=== PATIENT | female | born 1935 ===

== ENCOUNTER 2018-06-13 08:58 | Day surgery (SDC) | payer OTHER ==
[2018-06-13] VITALS (10 sets, daily range): BP systolic 125–157; BP diastolic 56–76
[~2018-06-13] VITALS: Ht 149.9 cm; Wt 63.5 kg
[~2018-06-13 08:58] MED LIST: ceFAZolin sod 1 GM in NS 55 ML IVPB ONE
[2018-06-13] MEDS ORDERED: Bupivacaine w/Epi 0.5% 30ml Vial INJ ONE (09:38)
[2018-06-13] MEDS ORDERED: EPINEPHrine 1mg/1ml Amp ONE (09:38)
[2018-06-13] MEDS ORDERED: ALLOPURINOL300 M1 ORAL (10:17)
[2018-06-13] MEDS ORDERED: LYRICA25 MG ORAL (10:17)
[2018-06-13] MEDS ORDERED: CLOPIDOGREL75 MG ORAL (10:17)
[2018-06-13] MEDS ORDERED: FAMOTIDINE20 MG ORAL (10:17)
[2018-06-13] MEDS ORDERED: ISOSORBIDE DINI20 M2 PO (10:17)
[2018-06-13] MEDS ORDERED: TRINTELLIX PO (10:17)
[2018-06-13] MEDS ORDERED: VITAMIN D1000 UNI1 ORAL (10:17)
[2018-06-13] MEDS ORDERED: MYRBETRIQ25 MG PO (10:17)
[2018-06-13] MEDS ORDERED: RANEXA500 MG ORAL (10:17)
[2018-06-13] MEDS ORDERED: CARVEDILOL6.25 MG ORAL (10:17)
[2018-06-13] MEDS ORDERED: AMLODIPINE BESYL5 MG ORAL (10:17)
[2018-06-13] MEDS ORDERED: PANTOPRAZOLE SO40 MG ORAL (10:17)
[2018-06-13] MEDS ORDERED: SYNTHROID150 MCG ORAL (10:17)
[2018-06-13] MEDS ORDERED: GEMFIBROZIL600 MG ORAL (10:17)
[2018-06-13] MEDS ORDERED: LOSARTAN POTASS50 MG ORAL (10:17)
[2018-06-13] MEDS ORDERED: NOVOLOG MI100 UNIT/3 SQ (10:17)
[2018-06-13] MEDS ORDERED: FIBER625 MG PO (10:17)
[2018-06-13] MEDS ORDERED: TRESIBA FL100 UNIT/1 SQ (10:17)
[2018-06-13] MEDS ORDERED: LEVOTHYROXINE125 MCG ORAL (10:17)
[2018-06-13] MEDS ORDERED: FEXOFENADINE HC60 M1 PO (10:17)
--- NOTE | 2018-06-13 10:18 | Pre-Procedure Note/Attestation ---
Pre-Procedure Note/Attestation Complete Prior to Procedure Planned Procedure: right Procedure Narrative: R shoulder scope, RC debridement, possible rotator cuff repair, subarcromial decompression Indications for Procedure Pre-Operative Diagnosis: R shoulder RC tear, impingement sydrome Attestation I attest that I discussed the nature of the procedure; its benefits; risks and complications; and alternatives (and the risks and benefits of such alternatives ), prior to the procedure, with the patient (or the patient's legal hvac sales representative). I attest that, if there was a reasonable possibility of needing a blood transfusion, the patient (or the patient's legal hvac sales representative) was given the [place] [facility] standardized written summary, pursuant to the Pranav And[employer] Blood Safety Act ([place] Health and Safety Code # 1645, as amended). I attest that I re-evaluated the patient just prior to the surgery and that there has been no change in the patient's H&P, except as documented below: Tom Hawkins MD Jun 13, 2018 10:18
[2018-06-13] MEDS ORDERED: Propofol 200mg/20ml IV ONE (10:29)
[2018-06-13] MEDS ORDERED: Lidocaine 1% MPF 10mg/ml 5ml ONE (10:29)
[2018-06-13] MEDS ORDERED: fentaNYL 100 mcg/2 mL IV ONE (10:31)
[2018-06-13] MEDS ORDERED: Ropivacaine 5mg/ml Vial 30ml INJ ONE (10:34)
[2018-06-13] MEDS ORDERED: NS Irrig 4000ml IRRIG ONE (11:00)
[2018-06-13] MEDS ORDERED: LR 1000ml ONE (11:00)
[2018-06-13] MEDS ORDERED: LR 1000ml 1,000 ML IVLG SCH (12:29)
--- NOTE | 2018-06-13 12:29 | Anethesia Preoperative Eval ---
Anesthesia Pre-op PMH/ROS General Date of Evaluation: Jun 13, 2018 Time of Evaluation: 10:34 Anesthesiologist: Ankit ASA Score: ASA 3 Mallampati Score Class I : Soft palate, uvula, fauces, pillars visible Class II: Soft palate, uvula, fauces visible Class III: Soft palate, base of uvula visible Class IV: Only hard plate visible Mallampati Classification: Class II Surgeon: Ross Diagnosis: R shoulder pain Surgical Procedure: R shoulder scope Anesthesia History: none Social History: smoking - h/o Family History: no anesthesia problems Allergies: Coded Allergies: ASPIRIN (Verified Allergy, Severe, 06/12/18) RASH,HIVES CODEINE (Verified Allergy, Severe, 06/12/18) CONSTIPATION Uncoded Allergies: SULFA (Allergy, Unknown, 06/12/18) CAN NOT REMEMBER REACTION Medications: see eMAR Patient NPO?: Yes Past Medical History Cardiovascular: Reports: HTN, CAD - s/p CABG no c/p; Denies: OR, valve dz, arrhythmia, other Pulmonary: Denies: asthma, COPD, PHUC, other Gastrointestinal/Genitourinary: Reports: GERD, CRI; Denies: ESRD, other Neurologic/Psychiatric: Reports: depression/anxiety, other - chroic pain; Denies: dementia, CVA, TIA Endocrine: Reports: DM, hypothyroidism; Denies: steroids, other HEENT: Reports: cataract (L), cataract (R); Denies: glaucoma, [place] (L[place] (R), other Hematology/Immune: Reports: anemia - mild Musculoskeletal/Integumentary: Reports: DJD; Denies: OA, RA, DDD, edema, other PMH Narrative: as above PSxH Narrative: CABG cholecystectomy, hysterectomy, partial mastectomy R Anesthesia Pre-op Phys. Exam Physician Exam Last Vital Signs Date Time Temp Pulse Resp B/P (MAP) Pulse Ox O2 Delivery O2 Flow Rate FiO2 06/13/18 09:38 97.6 65 20 128/76 99 Room Air Constitutional: NAD Neurologic: CN 2-12 intact Cardiovascular: RRR, no M/R/G Respiratory: CTA Gastrointestinal: S/NT/ND Airway Exam Mallampati Score: Class II MO: limited Neck: stiff ROM: limited Teeth: missing Dentures: upper, lower Anesthesia Pre-op A/P Labs see chart Accucheck 125 at admision Studies Pre-op Studies: EKG - SR Risk Assessment & Plan Assessment: ASA 3 Plan: GA with LMA brachial plexus block for p/op pain control Status Change Before Surgery: No Pre-Antibiotics Drug: Ancef 1gr. Given Within 1 Hr of Incision: Yes Time Given: 11:20 Marcus Pham MD Jun 13, 2018 12:29
[2018-06-13] MEDS ORDERED: Hydromorphone 0.5mg/0.5ml inj IVP PRN (12:30)
[2018-06-13] MEDS ORDERED: DiphenhydrAMINE 50mg/ml Inj IVP PRN (12:30)
--- NOTE | 2018-06-13 12:32 | Brief Operative Note ---
Immediate Post Operative Note Operative Note Pre-op Diagnosis: R shoulder RC tear, impingement sydrome Procedure: R shoulder scope, RCR, SAD, debridement, synovectomy Post-op Diagnosis: same as pre-op Findings: consistent w/pre-op dx studies Surgeon: Ross Senior Materials Planner: Alberto Anesthesiologist: Ankit Anesthesia: general, regional - Interscalene block Specimen: yes - shavings Complications: none Condition: stable Fluids: 400cc Estimated Blood Loss: none Drains: none Implant(s) used?: Yes - biomet anchor Tom Hawkins MD Jun 13, 2018 12:32
[2018-06-13] MEDS ORDERED: Sodium Chloride 10ml vial INJ ONE (12:35)
--- NOTE | 2018-06-13 12:52 | Immediate Post-Op Evaluation ---
Immediate Post-Op Evalulation Immediate Post-Op Evalulation Procedure: R shoulder arthroscopy subacromion decompression RC repair Date of Evaluation: Jun 13, 2018 Time of Evaluation: 12:51 IV Fluids: 400 Blood Products: none Estimated Blood Loss: min Urinary Output: none Blood Pressure Systolic: 125 Blood Pressure Diastolic: 68 Pulse Rate: 64 Respiratory Rate: 20 O2 Sat by Pulse Oximetry: 99 Temperature (Fahrenheit): 97.6 Pain Score (1-10): 1 Nausea: No Vomiting: No Complications none Patient Status: reacts, patent, none Hydration Status: adequate Marcus Pham MD Jun 13, 2018 12:52
--- NOTE | 2018-06-13 13:36 | 48 Hour Post Anesthesia Eval ---
Post Anesthesia Evaluation Procedure: R shoulder arthroscopy subacromion decompression RC repair Date of Evaluation: Jun 13, 2018 Time of Evaluation: 13:34 Blood Pressure Systolic: 165 0: 74 Pulse Rate: 68 Respiratory Rate: 20 Temperature (Fahrenheit): 97.6 O2 Sat by Pulse Oximetry: 98 Airway: patent Nausea: No Vomiting: No Pain Intensity: 2 Hydration Status: adequate Cardiopulmonary Status: stable Mental Status/LOC: patient returned to baseline Follow-up Care/Observations: n/a Post-Anesthesia Complications: none Follow-up care needed: ready to discharge Marcus Pham MD Jun 13, 2018 13:36
--- NOTE | 2018-06-14 00:15 | Operative Note - Dictated ---
DATE OF OPERATION: 06/13/2018 PREOPERATIVE DIAGNOSIS: Right shoulder supraspinatus partial tear with rotator cuff tendinopathy. POSTOPERATIVE DIAGNOSES: Right shoulder supraspinatus partial tear with rotator cuff tendinopathy, chondral lesions, humeral head, and glenoid labral tear and intra-articular synovitis. PROCEDURES PERFORMED: 1. Right shoulder rotator cuff repair. 2. Right shoulder arthroscopic subacromial decompression with release of coracoacromial ligament, subtotal bursectomy and acromioplasty. 3. Arthroscopic debridement of labrum with partial synovectomy, glenohumeral joint. 4. Chondroplasty of the glenoid. SURGEON: Tom Hawkins M.D. UNISAW OPERATOR: None. ANESTHESIOLOGIST: Marcus Pham M.D. ANESTHESIA: General endotracheal anesthesia with interscalene block. COMPLICATIONS: None. INTRAVENOUS ANTIBIOTICS: 1 g of Ancef. INDICATIONS: This is a pleasant female who has failed nonoperative treatment and option for above treatment was given. Risks, alternatives, and benefits were discussed with the patient. Risks include, but are not limited to, anesthesia complications including , medical complications including liver, kidney, cardiopulmonary deficits, bleeding, infection, cardiopulmonary issues, infection, bleeding, neurovascular injury, loss of range of motion, stiffness, need for revision surgery, and . The patient understood and wished to proceed. GROSS FINDINGS: With the patient under anesthesia, the patient had full range of motion of the shoulder with good stability via arthroscopy. The biceps tendon was thickened and there was a tear of the anterior, superior, and posterior labrum. The glenoid cartilage revealed grade 3 to grade 4 chondral lesions. The rotator cuff, articular surface revealed a partial-thickness tear of the supraspinatus tendon. The humeral head articular surface revealed grade 1 to grade 2 chondral lesions. The subscapularis tendon revealed a partial tear. On the bursal surface, the coracoacromial ligament was hypertrophied rough and irregular. There was a nodular subacromial spur on the undersurface of the acromion extending to the AC joint. The bursal surface of the rotator cuff revealed a partial-thickness tear of the supraspinatus tendon. Total thickness of the tear was approximately 80%. PROCEDURE IN DETAIL: The patient was brought into the operating room supine on a stretcher. Appropriate IV lines were placed by the anesthesiologist and 1 g of Ancef was administered. Interscalene block was administered. The patient was induced and intubated without complication. Ligamentous exam under anesthesia was done and showed no instability. The patient was placed into the lateral decubitus position with the right side up. Arm was placed in 30 degrees of forward flexion and 45 degrees of abduction. Axillary roll was placed and all bony prominences were well padded. Sleeve was placed over the right arm with 13 pounds of traction. The arm was prepped and draped in the usual sterile fashion with alcohol, ChloraPrep, and [place] draping. Arthroscopy. The joint was entered posteriorly with a blunt-tip obturator and an operating cannula was placed after making a small skin incision. The anterolateral portal was made with the aid of a switching stick. A 50-point examination of the glenohumeral joint was done. Debridement of labrum. A full-radius shaver was inserted and gentle debridement of the superior, anterior, and posterior labrum was completed until all frayed tissues were removed and the bed of healthy tissue remained. Chondroplasty of glenoid. A gentle chondroplasty of loose articular cartilage of the glenoid was done until there was a stable and balanced rim of articular cartilage of the glenoid. Rotator cuff debridement. A full-radius shaver was used to debride the articular surface of the rotator cuff until all frayed tissues were removed and a bed of healthy tissue remained. Arthroscopy. The arm was changed to the postoperative position with 5 pounds of traction. The bursa was entered in the usual fashion with the anterior and posterior portal established. A full examination of the subacromial space was done with the above findings. The lateral portal was established. Decompression. The heat probe and shaver were used through the lateral portal to skeletonize the undersurface of the acromions, removed the soft tissues and fully released the coracoacromial ligament. A high-speed bur was used through the lateral portal to remove bone from the anterior edge of the acromion and tapering gradually the posterior edge of the AC joint. All loose debris and loose bodies were taken out of the subacromial space. Rotator cuff repair. At this point, the supraspinatus tendon was probed and there was only a few fibers remaining connecting the supraspinatus to the humeral head footprint. The rotator cuff tear was and decortication of the humeral head was done. The torn edges of the rotator cuff were debrided until healthy tissue remained. Mobilization of the rotator cuff was done and from the [employer] system. FiberWire suture was used to repair the rotator cuff tendon. Mobilization was done and there was great mobilization and good purchase of the FiberWire into the rotator cuff tendon. Once this was done, the [place] system, 4.5 mm PEEK anchor was prepared. An awl was used at the level of the humeral head footprint for preparation of placement of the implant. This was done through an accessory anterolateral portal. At this point, the sutures were shuttled to the anterolateral portal and the 4.5 mm PEEK anchor from the [email or web address] system was placed into the hole where the awl had been in. The anchor was placed to the first line and further mobilization of the rotator cuff tendon and reapproximation anatomically to the footprint was done. The anchor was subsequently passed and deeper to the second . The anchor had excellent purchase in the bone, and there was an excellent rotator cuff repair without excess tension and recreation of anatomical repair. Loose debris was removed, and all instruments were removed from the shoulder, the portals were closed with 3-0 nylon sutures in a horizontal mattress fashion. Sterile dressing tape was placed on the plate with the arm was placed into an abduction sling. Postoperative instructions were given to the patient, and the patient went to the recovery room in stable condition. Neurovascularly intact. Tom Hawkins M.D. DR: Derrick JOB#: [id number] CC:
== END 2018-06-13 14:40 | disposition home or self-care (01) ==
LOC: SUR 08:58
DX: M75.101 Unspecified rotator cuff tear or rupture of right shoulder, not specified as traumatic (principal); M75.91 Shoulder lesion, unspecified, right shoulder; M79.2 Neuralgia and neuritis, unspecified; I12.9 Hypertensive chronic kidney disease with stage 1 through stage 4 chronic kidney disease, or unspecified chronic kidney disease; N18.9 Chronic kidney disease, unspecified; I25.10 Atherosclerotic heart disease of native coronary artery without angina pectoris; Z95.1 Presence of aortocoronary bypass graft; E03.9 Hypothyroidism, unspecified; D64.9 Anemia, unspecified; M19.90 Unspecified osteoarthritis, unspecified site; F41.9 Anxiety disorder, unspecified; F32.9 Major depressive disorder, single episode, unspecified; K21.9 Gastro-esophageal reflux disease without esophagitis; Z87.891 Personal history of nicotine dependence; Z85.3 Personal history of malignant neoplasm of breast; Z90.10 Acquired absence of unspecified breast and nipple; Z90.710 Acquired absence of both cervix and uterus; Z90.49 Acquired absence of other specified parts of digestive tract; Z88.6 Allergy status to analgesic agent; Z88.5 Allergy status to narcotic agent; Z88.2 Allergy status to sulfonamides
CPT/HCPCS: 29826; 29827; 82962; J0171; J0690; J2704; J2795; J3010